=== PATIENT | female | born 1985 | race African-American/Black ===

== ENCOUNTER 2017-11-07 12:46 | Emergency (ER) | payer BC ==
[~2017-11-07] VITALS: Ht 165.1 cm; Wt 104.5 kg
[~2017-11-07 12:46] MED LIST: BACTRIM DS 8001 TAB PO; CEPHALEXIN500 M1 PO
[2017-11-07 12:47] VITALS: BP 150/92; TEMP 98
[2017-11-07 13:08] LABS: COLLECTION METHOD CLEAN CATCH
[2017-11-07 13:18] LABS: PH 6 (5-8); SQUAMOUS EPITHELIAL 0-2 /hpf; URINE APPEARANCE Clear; URINE BACTERIA None Seen /hpf; URINE BILIRUBIN Negative (NEGATIVE); URINE BLOOD Negative (NEGATIVE); URINE COLOR Yellow; URINE GLUCOSE Negative (NEGATIVE); URINE KETONE Trace (NEGATIVE); URINE LEUKOCYTE ESTERASE Negative (NEGATIVE); URINE NITRATE Negative (NEGATIVE); URINE PROTEIN(semi-quant) 2+ (NEGATIVE); URINE RBC 0-2 /hpf
[2017-11-07 15:35] VITALS: PULSE 70
== END 2017-11-07 15:35 | disposition home or self-care (01) ==
LOC: COL.ER 12:46
PROVIDERS: Nurse Practitioner Primary Care
DX: N89.8 Other specified noninflammatory disorders of vagina (principal); F17.210 Nicotine dependence, cigarettes, uncomplicated

== ENCOUNTER 2022-07-16 10:38 | Emergency (ER) | payer SELFPAY ==
[~2022-07-16] VITALS: Ht 165.1 cm; Wt 95.5 kg
[2022-07-16 11:06] VITALS: TEMP 97.7
[2022-07-16 11:52] LABS: COLLECTION METHOD CLEAN CATCH
[2022-07-16 12:00] LABS: SQUAMOUS EPITHELIAL None Seen /hpf (0-10); URINE BACTERIA Rare /hpf (NONE SEEN); URINE RBC None Seen /hpf (0-2)
[2022-07-16 12:02] LABS: URINE APPEARANCE Clear (CLEAR/HAZY); URINE COLOR Yellow (YELLOW)
[2022-07-16 12:03] LABS: PH 6.5 (5.0-8.5); URINE BLOOD Negative (NEGATIVE); URINE GLUCOSE Negative (NEGATIVE); URINE KETONE Negative (NEGATIVE); URINE NITRATE Negative (NEGATIVE); URINE PROTEIN(semi-quant) 1+ (NEGATIVE); URINE UROBILINOGEN 0.2 E.U/dL (0.2-1.0)
[2022-07-16 12:20] VITALS: BP 138/98; PULSE 71
== END 2022-07-16 12:20 | disposition home or self-care (01) ==
LOC: COL.ER 10:38
PROVIDERS: Nurse Practitioner
DX: N89.8 Other specified noninflammatory disorders of vagina (principal); F17.200 Nicotine dependence, unspecified, uncomplicated; Z28.310 Unvaccinated for COVID-19